=== PATIENT | male | born 1960 ===

== ENCOUNTER 2021-01-06 12:39 | Inpatient (IN) ==
[2021-01-06] MEDS ORDERED: NS 0.9% 1000 ml BAG 1,000 ML IV ONE (14:46)
[2021-01-06] MEDS ORDERED: Morphine 4 MG/ML VIAL (1 ml) IV ONE (14:46)
[2021-01-06 15:18] LABS: ABS Basophils 0.1 10^3/ul (0-0.2); ABS Eosinophils 0.1 10^3/ul (0-0.6); ABS Lymphocytes 0.9 10^3/ul (1.0-4.8); ABS Monocytes 1.5 10^3/ul (0-0.8); ABS Neutrophils 11.3 10^3/ul (1.5-7.7); Eosinophil % 0.7 %; Hematocrit 38 % (42-52); Hemoglobin 13.1 g/dL (14.0-18.0); Lymphocyte % 6.4 %; Mean Corpuscular HGB Conc 35 g/dL (31-36); Mean Corpuscular Hemoglobin 34 pg (27-31); Mean Corpuscular Volume 99 fL (80-94); Mean Platelet Volume 7.2 fL (7.4-10.4); Platelet Count 351 10^3/uL (150-450); Red Blood Count 3.82 10^6 /uL (4.18-5.48); Red Cell Distribution Width 13 % (10-15); White Blood Count 13.8 10^3/uL (3.5-10.8)
[2021-01-06 15:51] LABS: Albumin 3.3 g/dL (3.2-5.2); Albumin/Globulin Ratio 0.7 (1-3); C Reactive Protein 195.05 mg/L (<8.01); Calcium 8.6 mg/dL (8.6-10.3); EGFR African American 157.2 (>60); EGFR Non-African American 129.9 (>60); Globulin 4.8 g/dL (2-4); Potassium 3.5 mmol/L (3.5-5.0); Total Bilirubin 0.8 mg/dL (0.2-1.0); Total Protein 8.1 g/dL (6.4-8.9)
[2021-01-06] MEDS ORDERED: Piperacillin/Tazobac ADVAN 3.375 GM in NS 0.9% 100 ml BAG 100 ML IV ONE (16:22)
[2021-01-06] MEDS ORDERED: Vancomycin 1,250 MG in NS 0.9% 250 ml 250 ML IVPB ONE (16:22)
[2021-01-06 17:16] LABS: Urine Appearance Clear; Urine Bilirubin Negative (Negative); Urine Blood 2+ (Negative); Urine Color Yellow; Urine Glucose Negative (Negative); Urine Ketones Negative (Negative); Urine Nitrite Negative (Negative); Urine Protein Negative (Negative); Urine Specific Gravity 1.013 (1.002-1.030); Urine Urobilinogen Positive (Negative)
[2021-01-06 17:19] LABS: Urine Bacteria Absent (Absent); Urine Red Blood Cell 2+(6-10/hpf) (Absent); Urine Squamous Epithelial Cell Present (Absent); Urine White Blood Cell Trace(0-5/hpf) (Absent)
[2021-01-06] MEDS ORDERED: Thiamine 100 MG/ML 2 ml VIAL (200 mg) IV ONE (19:17)
[2021-01-06] MEDS ORDERED: Vancomycin per Pharmacy 1 EA NOTE FOLLOW UP SCH (20:00)
[2021-01-06] MEDS: oxyCODONE/Acetamin 5/325 mg TAB PO PRN (22:37)
[2021-01-06] MEDS: Multivitamins/Minerals TAB PO SCH (22:37)
[2021-01-06] MEDS: Cefepime 2 GM in Dextrose 2 GM/50 ML BAG IV SCH (22:39)
[2021-01-06] MEDS: metroNIDAZOLE IV 500 MG/100ML 500 MG/100 ML BAG IVPB SCH (23:14)
[2021-01-07] MEDS: Vancomycin 1,250 MG in NS 0.9% 250 ml 250 ML IVPB SCH ×3 (01:59→17:31)
[2021-01-07 05:45] LABS: ABS Basophils 0.1 10^3/ul (0-0.2); ABS Eosinophils 0.2 10^3/ul (0-0.6); ABS Lymphocytes 0.8 10^3/ul (1.0-4.8); ABS Neutrophils 7.8 10^3/ul (1.5-7.7); Eosinophil % 2.4 %; Hematocrit 35 % (42-52); Hemoglobin 12.4 g/dL (14.0-18.0); Lymphocyte % 8.1 %; Mean Corpuscular HGB Conc 36 g/dL (31-36); Mean Corpuscular Hemoglobin 35 pg (27-31); Mean Corpuscular Volume 99 fL (80-94); Mean Platelet Volume 7.4 fL (7.4-10.4); Platelet Count 296 10^3/uL (150-450); Red Blood Count 3.54 10^6 /uL (4.18-5.48); Red Cell Distribution Width 13 % (10-15); White Blood Count 9.9 10^3/uL (3.5-10.8)
[2021-01-07 05:52] LABS: INR 1.41 (0.82-1.09)
[2021-01-07 06:06] LABS: Calcium 7.9 mg/dL (8.6-10.3); EGFR African American 183.9 (>60); EGFR Non-African American 151.9 (>60); Potassium 3.3 mmol/L (3.5-5.0)
[2021-01-07 08:28] LABS: Albumin 2.8 g/dL (3.2-5.2); Magnesium 2.2 mg/dL (1.9-2.7)
[2021-01-07] MEDS: Multivitamins/Minerals TAB PO SCH (10:45)
[2021-01-07 10:46] LABS: Folate 14.42 ng/mL (5.90-24.80)
[2021-01-07] MEDS: Potassium Chlor 20 meq TAB.ER PO SCH ×2 (10:46→13:20)
[2021-01-07] MEDS: oxyCODONE/Acetamin 5/325 mg TAB PO PRN ×2 (10:46→22:05)
[2021-01-07] MEDS: Cefepime 2 GM in Dextrose 2 GM/50 ML BAG IV SCH ×2 (11:21→22:06)
[2021-01-07] MEDS: metroNIDAZOLE IV 500 MG/100ML 500 MG/100 ML BAG IVPB SCH ×2 (12:01→22:06)
[2021-01-07] MEDS: Collagenase 250 units/gm OINT 1 tube TOPICAL SCH (12:02)
[2021-01-08] MEDS: Vancomycin 1,250 MG in NS 0.9% 250 ml 250 ML IVPB SCH ×3 (02:26→17:30)
[2021-01-08 05:47] LABS: ABS Basophils 0.1 10^3/ul (0-0.2); ABS Eosinophils 0.3 10^3/ul (0-0.6); ABS Lymphocytes 1.2 10^3/ul (1.0-4.8); ABS Monocytes 0.9 10^3/ul (0-0.8); ABS Neutrophils 6.2 10^3/ul (1.5-7.7); Eosinophil % 3.4 %; Hematocrit 35 % (42-52); Hemoglobin 12.3 g/dL (14.0-18.0); Lymphocyte % 13.5 %; Mean Corpuscular HGB Conc 35 g/dL (31-36); Mean Corpuscular Hemoglobin 35 pg (27-31); Mean Corpuscular Volume 99 fL (80-94); Mean Platelet Volume 7.5 fL (7.4-10.4); Platelet Count 302 10^3/uL (150-450); Red Blood Count 3.53 10^6 /uL (4.18-5.48); Red Cell Distribution Width 13 % (10-15); White Blood Count 8.6 10^3/uL (3.5-10.8)
[2021-01-08 06:15] LABS: Calcium 7.9 mg/dL (8.6-10.3); EGFR African American 205.2 (>60); EGFR Non-African American 169.6 (>60); Magnesium 2.2 mg/dL (1.9-2.7); Potassium 3.8 mmol/L (3.5-5.0)
[2021-01-08 08:54] LABS: C Reactive Protein 117.98 mg/L (<8.01)
[2021-01-08] MEDS ORDERED: Vancomycin Trough Check NOTE FOLLOW UP ONE (09:30)
[2021-01-08] MEDS: Collagenase 250 units/gm OINT 1 tube TOPICAL SCH (09:55)
[2021-01-08] MEDS: Multivitamins/Minerals TAB PO SCH (09:56)
[2021-01-08] MEDS: oxyCODONE/Acetamin 5/325 mg TAB PO PRN ×2 (09:57→16:26)
[2021-01-08] MEDS: Cefepime 2 GM in Dextrose 2 GM/50 ML BAG IV SCH ×2 (09:57→22:13)
[2021-01-08] MEDS: metroNIDAZOLE IV 500 MG/100ML 500 MG/100 ML BAG IVPB SCH ×2 (09:58→22:12)
[2021-01-08 10:12] LABS: EGFR African American 205.2 (>60); EGFR Non-African American 169.6 (>60)
[2021-01-08 10:28] LABS: Vancomycin Trough 12.2 mcg/mL
[2021-01-09] MEDS: Vancomycin 1,250 MG in NS 0.9% 250 ml 250 ML IVPB SCH ×3 (01:13→21:18)
[2021-01-09 06:04] LABS: Calcium 7.5 mg/dL (8.6-10.3); Potassium 4.1 mmol/L (3.5-5.0)
[2021-01-09 06:10] LABS: EGFR African American 200.6 (>60); EGFR Non-African American 165.8 (>60)
[2021-01-09 06:41] LABS: ABS Basophils 0.1 10^3/ul (0-0.2); ABS Eosinophils 0.6 10^3/ul (0-0.6); ABS Lymphocytes 1.9 10^3/ul (1.0-4.8); ABS Monocytes 1.3 10^3/ul (0-0.8); ABS Neutrophils 10.8 10^3/ul (1.5-7.7); Eosinophil % 3.9 %; Hematocrit 35 % (42-52); Hemoglobin 12.2 g/dL (14.0-18.0); Lymphocyte % 13.1 %; Mean Corpuscular HGB Conc 35 g/dL (31-36); Mean Corpuscular Hemoglobin 35 pg (27-31); Mean Corpuscular Volume 100 fL (80-94); Mean Platelet Volume 9.2 fL (7.4-10.4); Nucleated Red Blood Cells % 0.1; Platelet Count 301 10^3/uL (150-450); Red Blood Count 3.49 10^6 /uL (4.18-5.48); Red Cell Distribution Width 13 % (10-15); White Blood Count 14.7 10^3/uL (3.5-10.8)
[2021-01-09] MEDS: Multivitamins/Minerals TAB PO SCH (08:42)
[2021-01-09] MEDS: Collagenase 250 units/gm OINT 1 tube TOPICAL SCH (08:43)
[2021-01-09] MEDS: metroNIDAZOLE IV 500 MG/100ML 500 MG/100 ML BAG IVPB SCH ×2 (09:48→23:21)
[2021-01-09] MEDS: Cefepime 2 GM in Dextrose 2 GM/50 ML BAG IV SCH (11:36)
[2021-01-09] MEDS ORDERED: Midazolam 2 mg/2 ml VIAL 1 mg/ml 2 ml VIAL (2 mg) ONE (14:43)
[2021-01-09] MEDS ORDERED: Ketamine HCL 50 mg/ml 10 ml VIAL (500 MG) ONE (14:43)
[2021-01-09] MEDS ORDERED: fentaNYL 100 mcg/2 ml 50 MCG/ML VIAL ONE ×2 (14:43→18:42)
[2021-01-09] MEDS ORDERED: ceFAZolin 1 GM ADVAN 1 GM ADDV.VIAL IVPB ONE (14:45)
[2021-01-09] MEDS ORDERED: Lidocaine 2% PF 5 ML VIAL ONE (14:45)
[2021-01-09] MEDS ORDERED: Propofol 10 MG/ML 20 ML BTL ONE ×4 (14:46→17:38)
[2021-01-09] MEDS ORDERED: Dexamethasone IV 4 MG/ML VIAL 1 ml VIAL ONE (14:50)
[2021-01-09] MEDS ORDERED: Ondansetron 4 mg VIAL 2 MG/ML 2 ml VIAL ONE (14:50)
[2021-01-09] MEDS ORDERED: Glycopyrrolate IV 0.2 MG/ML 1 ML VIAL ONE (14:50)
[2021-01-09] MEDS ORDERED: COVID-19 VACCINE, AD26(JANSSEN)/PF 0.5 ML IM ONE (15:00)
[2021-01-09] MEDS ORDERED: Bupivacaine 0.5% SDV PF 30ML VIAL ONE (15:00)
[2021-01-09] MEDS ORDERED: fentaNYL 100 mcg/2 ml 50 MCG/ML VIAL IV PRN (18:38)
[2021-01-09] MEDS ORDERED: Ondansetron 4 mg VIAL 2 MG/ML 2 ml VIAL IV PRN (18:38)
[2021-01-09] MEDS ORDERED: oxyCODONE/Acetamin 5/325 mg TAB PO PRN (18:38)
[2021-01-09] MEDS ORDERED: DiMENhydriNATE IV 50 mg/ml 1 ml VIAL IV PUSH PRN (18:38)
[2021-01-09] MEDS ORDERED: Naloxone 0.4 mg VIAL 0.4 mg/ml 1 ml VIAL IV PRN (18:38)
[2021-01-09] MEDS ORDERED: oxyCODONE/Acetamin 5/325 mg TAB ONE (18:42)
[2021-01-09] MEDS: cefTRIAXone 2 GM ADDV.VIAL 2 GM in NS 0.9% 100 ml BAG 100 ML IV SCH (20:20)
[2021-01-09] MEDS: oxyCODONE/Acetamin 5/325 mg TAB PO PRN (22:43)
[2021-01-10] MEDS: Vancomycin 1,250 MG in NS 0.9% 250 ml 250 ML IVPB SCH ×3 (01:22→17:13)
[2021-01-10 06:57] LABS: C Reactive Protein 69.77 mg/L (<8.01); Calcium 8.1 mg/dL (8.6-10.3); EGFR African American 160.1 (>60); EGFR Non-African American 132.3 (>60); Magnesium 2.4 mg/dL (1.9-2.7)
[2021-01-10] MEDS: Multivitamins/Minerals TAB PO SCH (09:08)
[2021-01-10] MEDS: oxyCODONE/Acetamin 5/325 mg TAB PO PRN ×2 (09:09→22:47)
[2021-01-10] MEDS: Heparin 5000 UNITS/ML 1 mL VIAL SUBCUT SCH ×2 (09:10→17:11)
[2021-01-10] MEDS: metroNIDAZOLE IV 500 MG/100ML 500 MG/100 ML BAG IVPB SCH ×2 (09:12→21:32)
[2021-01-10] MEDS ORDERED: Vancomycin Trough Check NOTE FOLLOW UP ONE (09:30)
[2021-01-10 10:01] LABS: EGFR African American 176.4 (>60); EGFR Non-African American 145.8 (>60)
[2021-01-10 10:24] LABS: Vancomycin Trough 13.6 mcg/mL
[2021-01-10] MEDS: Collagenase 250 units/gm OINT 1 tube TOPICAL SCH (10:25)
[2021-01-10] MEDS: cefTRIAXone 2 GM ADDV.VIAL 2 GM in NS 0.9% 100 ml BAG 100 ML IV SCH (20:18)
[2021-01-11] MEDS: Heparin 5000 UNITS/ML 1 mL VIAL SUBCUT SCH ×4 (01:06→23:48)
[2021-01-11] MEDS: Vancomycin 1,250 MG in NS 0.9% 250 ml 250 ML IVPB SCH (01:06)
[2021-01-11] MEDS: oxyCODONE/Acetamin 5/325 mg TAB PO PRN ×2 (08:11→16:02)
[2021-01-11] MEDS: Multivitamins/Minerals TAB PO SCH (08:11)
[2021-01-11] MEDS: Collagenase 250 units/gm OINT 1 tube TOPICAL SCH (08:12)
[2021-01-11 08:34] LABS: ABS Basophils 0.1 10^3/ul (0-0.2); ABS Eosinophils 0.3 10^3/ul (0-0.6); ABS Lymphocytes 1.1 10^3/ul (1.0-4.8); ABS Monocytes 0.8 10^3/ul (0-0.8); ABS Neutrophils 4.7 10^3/ul (1.5-7.7); Eosinophil % 4.8 %; Hematocrit 34 % (42-52); Lymphocyte % 15.7 %; Mean Corpuscular HGB Conc 35 g/dL (31-36); Mean Corpuscular Hemoglobin 35 pg (27-31); Mean Corpuscular Volume 99 fL (80-94); Mean Platelet Volume 7.5 fL (7.4-10.4); Platelet Count 419 10^3/uL (150-450); Red Blood Count 3.47 10^6 /uL (4.18-5.48); Red Cell Distribution Width 13 % (10-15); White Blood Count 7.1 10^3/uL (3.5-10.8)
[2021-01-11] MEDS: metroNIDAZOLE IV 500 MG/100ML 500 MG/100 ML BAG IVPB SCH (09:15)
[2021-01-11] MEDS: cefTRIAXone 2 GM ADDV.VIAL 2 GM in NS 0.9% 100 ml BAG 100 ML IV SCH (20:05)
[2021-01-12] MEDS: Multivitamins/Minerals TAB PO SCH (09:35)
[2021-01-12] MEDS: Heparin 5000 UNITS/ML 1 mL VIAL SUBCUT SCH ×2 (09:35→16:37)
[2021-01-12] MEDS: Collagenase 250 units/gm OINT 1 tube TOPICAL SCH (10:33)
[2021-01-12] MEDS: cefTRIAXone 2 GM ADDV.VIAL 2 GM in NS 0.9% 100 ml BAG 100 ML IV SCH (20:53)
[2021-01-13] MEDS: Heparin 5000 UNITS/ML 1 mL VIAL SUBCUT SCH ×3 (03:59→16:00)
[2021-01-13 06:18] LABS: Hematocrit 33 % (42-52); Hemoglobin 11.3 g/dL (14.0-18.0); Mean Corpuscular HGB Conc 35 g/dL (31-36); Mean Corpuscular Hemoglobin 35 pg (27-31); Mean Corpuscular Volume 100 fL (80-94); Mean Platelet Volume 6.9 fL (7.4-10.4); Platelet Count 415 10^3/uL (150-450); Red Blood Count 3.24 10^6 /uL (4.18-5.48); Red Cell Distribution Width 13 % (10-15); White Blood Count 5.5 10^3/uL (3.5-10.8)
[2021-01-13] MEDS: Multivitamins/Minerals TAB PO SCH (10:12)
[2021-01-13] MEDS: Collagenase 250 units/gm OINT 1 tube TOPICAL SCH (17:08)
[2021-01-13] MEDS: cefTRIAXone 2 GM ADDV.VIAL 2 GM in NS 0.9% 100 ml BAG 100 ML IV SCH (20:47)
[2021-01-13] MEDS ORDERED: oxyCODONE/Acetamin 5/325 mg TAB PO ONE (21:31)
[2021-01-14] MEDS: Heparin 5000 UNITS/ML 1 mL VIAL SUBCUT SCH ×3 (00:41→16:45)
[2021-01-14] MEDS: Multivitamins/Minerals TAB PO SCH (09:20)
[2021-01-14] MEDS: Collagenase 250 units/gm OINT 1 tube TOPICAL SCH (16:46)
[2021-01-14] MEDS: cefTRIAXone 2 GM ADDV.VIAL 2 GM in NS 0.9% 100 ml BAG 100 ML IV SCH (20:52)
[2021-01-15] MEDS: Heparin 5000 UNITS/ML 1 mL VIAL SUBCUT SCH ×3 (00:39→17:48)
[2021-01-15] MEDS: Multivitamins/Minerals TAB PO SCH (09:05)
[2021-01-15 10:10] LABS: ABS Eosinophils 0.3 10^3/ul (0-0.6); ABS Lymphocytes 1.3 10^3/ul (1.0-4.8); ABS Monocytes 0.8 10^3/ul (0-0.8); ABS Neutrophils 4.8 10^3/ul (1.5-7.7); Eosinophil % 4.6 %; Hematocrit 39 % (42-52); Hemoglobin 13.3 g/dL (14.0-18.0); Lymphocyte % 17.8 %; Mean Corpuscular HGB Conc 34 g/dL (31-36); Mean Corpuscular Hemoglobin 34 pg (27-31); Mean Corpuscular Volume 99 fL (80-94); Mean Platelet Volume 6.6 fL (7.4-10.4); Platelet Count 488 10^3/uL (150-450); Red Blood Count 3.98 10^6 /uL (4.18-5.48); Red Cell Distribution Width 13 % (10-15); White Blood Count 7.2 10^3/uL (3.5-10.8)
[2021-01-15 10:41] LABS: Calcium 8.9 mg/dL (8.6-10.3); EGFR African American 187.8 (>60); EGFR Non-African American 155.2 (>60); Potassium 3.8 mmol/L (3.5-5.0)
[2021-01-15] MEDS: Collagenase 250 units/gm OINT 1 tube TOPICAL SCH (17:50)
[2021-01-15] MEDS: cefTRIAXone 2 GM ADDV.VIAL 2 GM in NS 0.9% 100 ml BAG 100 ML IV SCH (22:25)
[2021-01-16] MEDS: Heparin 5000 UNITS/ML 1 mL VIAL SUBCUT SCH ×3 (00:07→17:09)
[2021-01-16 04:08] LABS: ABS Basophils 0.1 10^3/ul (0-0.2); ABS Eosinophils 0.4 10^3/ul (0-0.6); ABS Lymphocytes 2.1 10^3/ul (1.0-4.8); ABS Monocytes 0.9 10^3/ul (0-0.8); ABS Neutrophils 5.3 10^3/ul (1.5-7.7); Eosinophil % 4.3 %; Hematocrit 38 % (42-52); Hemoglobin 13.1 g/dL (14.0-18.0); Lymphocyte % 23.8 %; Mean Corpuscular HGB Conc 35 g/dL (31-36); Mean Corpuscular Hemoglobin 35 pg (27-31); Mean Corpuscular Volume 99 fL (80-94); Mean Platelet Volume 6.5 fL (7.4-10.4); Platelet Count 446 10^3/uL (150-450); Red Blood Count 3.79 10^6 /uL (4.18-5.48); Red Cell Distribution Width 13 % (10-15); White Blood Count 8.9 10^3/uL (3.5-10.8)
[2021-01-16 04:25] LABS: Calcium 8.7 mg/dL (8.6-10.3); EGFR African American 169.6 (>60); EGFR Non-African American 140.1 (>60); Potassium 3.7 mmol/L (3.5-5.0)
[2021-01-16] MEDS ORDERED: Potassium Chlor 10 meq TAB PO ONE (08:28)
[2021-01-16] MEDS: Multivitamins/Minerals TAB PO SCH (09:24)
[2021-01-16] MEDS: Collagenase 250 units/gm OINT 1 tube TOPICAL SCH (09:25)
[2021-01-16 14:05] LABS: C Reactive Protein 15.62 mg/L (<8.01)
[2021-01-16] MEDS: cefTRIAXone 2 GM ADDV.VIAL 2 GM in NS 0.9% 100 ml BAG 100 ML IV SCH (20:10)
[2021-01-17] MEDS: Heparin 5000 UNITS/ML 1 mL VIAL SUBCUT SCH ×3 (00:44→17:07)
[2021-01-17 04:35] LABS: ABS Basophils 0.2 10^3/ul (0-0.2); ABS Eosinophils 0.4 10^3/ul (0-0.6); ABS Lymphocytes 2.6 10^3/ul (1.0-4.8); ABS Neutrophils 6.3 10^3/ul (1.5-7.7); Eosinophil % 3.5 %; Hematocrit 38 % (42-52); Hemoglobin 13.3 g/dL (14.0-18.0); Lymphocyte % 24.8 %; Mean Corpuscular HGB Conc 35 g/dL (31-36); Mean Corpuscular Hemoglobin 35 pg (27-31); Mean Corpuscular Volume 98 fL (80-94); Mean Platelet Volume 6.8 fL (7.4-10.4); Platelet Count 425 10^3/uL (150-450); Red Blood Count 3.84 10^6 /uL (4.18-5.48); Red Cell Distribution Width 13 % (10-15); White Blood Count 10.3 10^3/uL (3.5-10.8)
[2021-01-17 04:44] LABS: Calcium 8.7 mg/dL (8.6-10.3); Potassium 3.9 mmol/L (3.5-5.0)
[2021-01-17 04:50] LABS: EGFR African American 176.4 (>60); EGFR Non-African American 145.8 (>60)
[2021-01-17] MEDS: Collagenase 250 units/gm OINT 1 tube TOPICAL SCH (09:28)
[2021-01-17] MEDS: Multivitamins/Minerals TAB PO SCH (09:28)
[2021-01-17] MEDS: cefTRIAXone 2 GM ADDV.VIAL 2 GM in NS 0.9% 100 ml BAG 100 ML IV SCH (21:28)
[2021-01-18] MEDS: Heparin 5000 UNITS/ML 1 mL VIAL SUBCUT SCH ×2 (01:05→08:10)
[2021-01-18] MEDS: Multivitamins/Minerals TAB PO SCH (08:09)
[2021-01-18] MEDS: Collagenase 250 units/gm OINT 1 tube TOPICAL SCH (08:09)
[2021-01-18 11:51] VITALS: BP 146/77
== END 2021-01-18 14:09 | disposition home or self-care (01) ==
LOC: ED 12:39 → MEDTELE 21:11
PROVIDERS: ADMIT Internal Medicine; ATTEND Internal Medicine